=== PATIENT | male | born 1980 | race Caucasian/White ===

== ENCOUNTER 2017-09-06 23:48 | Emergency (ER) | payer OTHER ==
[~2017-09-06] VITALS: Ht 180.3 cm; Wt 74.8 kg
[2017-09-07 00:40] VITALS: BP 103/69
[2017-09-07 00:50] LABS: Urine Bacteria NONE SEEN /hpf (None Seen); Urine Blood Negative /uL (Negative); Urine Specific Gravity 1.022 (1.001-1.035); Urine WBC 1 /hpf (0 - 3)
[2017-09-07 01:23] LABS: Alcohol, Urine < 3.0 mg/dL (0-5)
[2017-09-07 01:24] LABS: Amphetamine Screen, Urine POSITIVE (NEGATIVE); Barbiturate Scree,Urine NEGATIVE (NEGATIVE); Benzodiazephine Screen, Urine NEGATIVE (NEGATIVE); Cannabinoid Screen, Urine NEGATIVE (NEGATIVE); Cocaine Screen, Urine NEGATIVE (NEGATIVE); Opiate Scree,Urine NEGATIVE (NEGATIVE); Phencyclidine Screen, Urine NEGATIVE (NEGATIVE)
== END 2017-09-07 06:21 | disposition left against medical advice (07) ==
LOC: ER 23:51
DX: R51 Headache (principal); Z53.21 Procedure and treatment not carried out due to patient leaving prior to being seen by health care provider
CPT/HCPCS: 70450; 80307; 81001

== ENCOUNTER 2018-05-22 12:17 | Emergency (ER) | payer OTHER ==
[~2018-05-22] VITALS: Ht 180.3 cm; Wt 64.4 kg
[2018-05-22 12:26] VITALS: BP 100/45
[2018-05-22] MEDS ORDERED: DEXAMETHASONE SOD PHOS 10MG/1ML VIAL INJ IM ONE (14:15)
[2018-05-22] MEDS ORDERED: KETOROLAC TROMETH 60MG/2ML VIAL IM ONE (14:15)
[2018-05-22] MEDS ORDERED: CYCLOBENZAPRINE HCL 10 MG TAB PO ONE (14:45)
== END 2018-05-22 15:56 | disposition home or self-care (01) ==
LOC: ER 12:17
DX: S33.5XXA Sprain of ligaments of lumbar spine, initial encounter (principal); Z88.0 Allergy status to penicillin; X58.XXXA Exposure to other specified factors, initial encounter; Y93.89 Activity, other specified; Y99.8 Other external cause status; Y92.89 Other specified places as the place of occurrence of the external cause
CPT/HCPCS: 72100; 96372; 99284; J1100; J1885

== ENCOUNTER 2019-10-24 01:15 | Emergency (ER) | payer OTHER ==
[~2019-10-24] VITALS: Ht 177.8 cm; Wt 64.9 kg
[2019-10-24 05:45] VITALS: BP 114/65
[2019-10-24] MEDS ORDERED: HYDROcodone-ACET 10/325MG TAB PO ONE (07:00)
== END 2019-10-24 08:27 | disposition home or self-care (01) ==
LOC: ER 01:22
DX: S30.21XA Contusion of penis, initial encounter (principal); F17.210 Nicotine dependence, cigarettes, uncomplicated; Z88.0 Allergy status to penicillin; W22.8XXA Striking against or struck by other objects, initial encounter; Y93.89 Activity, other specified; Y99.8 Other external cause status; Y92.89 Other specified places as the place of occurrence of the external cause
CPT/HCPCS: 76870

== ENCOUNTER 2019-10-31 20:31 | Emergency (ER) | payer OTHER ==
[~2019-10-31] VITALS: Ht 177.8 cm; Wt 70.3 kg
[2019-10-31 23:19] LABS: Urine Bacteria MOD /hpf (None Seen); Urine Blood 3+ /uL (Negative); Urine Specific Gravity 1.019 (1.001-1.035); Urine WBC 1457 /hpf (0 - 3); Urine WBC Clumps PRESENT /hpf (None Seen)
[2019-11-01 02:27] VITALS: BP 119/77
[2019-11-01] MEDS ORDERED: CLINDAMYCIN 600 MG/4 ML VL IM ONE (03:00)
[2019-11-01] MEDS ORDERED: KETOROLAC TROMETH 60MG/2ML VIAL IM ONE (03:00)
== END 2019-11-01 04:00 | disposition home or self-care (01) ==
LOC: ER 20:39
DX: N48.22 Cellulitis of corpus cavernosum and penis (principal); N39.0 Urinary tract infection, site not specified; Z88.0 Allergy status to penicillin; F17.210 Nicotine dependence, cigarettes, uncomplicated
CPT/HCPCS: 81001; 96372; 99284; J1885

== ENCOUNTER 2023-11-26 16:56 | Emergency (ER) | payer OTHER ==
[~2023-11-26] VITALS: Ht 180.3 cm; Wt 83.9 kg
[2023-11-26 17:36] VITALS: BP 101/77; RESP 16; O2SAT 100
[2023-11-26 17:49] VITALS: PULSE 62
[2023-11-26 19:34] LABS: Basophils # (auto) 0 10 ^3/uL (0-0.2); Basophils % (auto) 0.5 % (0.0-2.0); Eosinophils # (auto) 0.3 10 ^3/uL (0-0.8); Eosinophils % (auto) 4.1 % (0.0-7.0); Hematocrit 45.3 % (41.0-53.0); Hemoglobin 15.2 g/dL (13.5-17.5); Lymphocytes # (auto) 3.3 10 ^3/uL (0.4-5.4); Lymphocytes % (auto) 41.8 % (10.0-50.0); Mean Corpuscular Hemoglobin 29.7 pg (28.0-32.0); Mean Corpuscular Hgb Conc. 33.5 g/dL (32.0-36.0); Mean Corpuscular Volume 88.9 fL (80.0-100.0); Monocytes # (auto) 0.7 10 ^3/uL (0-1.3); Monocytes % (auto) 8.2 % (0.0-12.0); Neutrophils # (auto) 3.6 10 ^3/uL (1.6-8.6); Neutrophils % (auto) 45.4 % (37.0-80.0); Red Cell Distribution Width 13.2 % (11.8-14.3)
[2023-11-26 20:10] LABS: Alanine Aminotransferase 31 U/L (7-40); Albumin 4.3 g/dL (3.2-4.8); Alkaline Phosphatase 61 U/L (46-116); Anion Gap 1 (5-15); Aspartate Aminotransferase 25 U/L (13-40); BUN/Creatinine Ratio 10.4 (10.0-20.0); Bilirubin, Total 0.4 mg/dL (0.2-1.0); Blood Urea Nitrogen 12 mg/dL (9-23); Calcium 10.2 mg/dL (8.7-10.4); Carbon Dioxide 29 mmol/L (20-30); Chloride 108 mmol/L (98-107); Glucose 120 mg/dL (74-106); Potassium 4.4 mmol/L (3.5-5.1); Sodium 138 mmol/L (136-145); Total Protein 6.6 g/dL (5.7-8.2)
[2023-11-26 21:47] LABS: Urine Bacteria None Seen /hpf (None Seen)
[2023-11-26 22:02] LABS: Urine Blood Negative /uL (Negative); Urine Clarity Clear (Clear); Urine Color Light-Yellow (Yellow); Urine Protein, UAD Negative (Negative); Urine Specific Gravity 1.007 (1.001-1.035); Urine Urobilinogen Normal (Negative); Urine WBC <1 /hpf (0 - 3)
== END 2023-11-27 00:37 | disposition left against medical advice (07) ==
LOC: ER 16:56
DX: R55 Syncope and collapse (principal); R07.9 Chest pain, unspecified; F17.210 Nicotine dependence, cigarettes, uncomplicated
CPT/HCPCS: 36415; 80053; 81001; 82962; 83880; 84484; 85025; 93005

== ENCOUNTER 2024-01-14 11:34 | Emergency (ER) | payer OTHER ==
[~2024-01-14] VITALS: Ht 180.3 cm; Wt 80.0 kg
[2024-01-14] MEDS: SODIUM CHLORIDE 0.9% 1,000 ML IV ONE ×2 (13:22→14:06)
[2024-01-14 14:19] LABS: Basophils # (auto) 0 10 ^3/uL (0-0.2); Basophils % (auto) 0.6 % (0.0-2.0); Eosinophils # (auto) 0.2 10 ^3/uL (0-0.8); Eosinophils % (auto) 3.4 % (0.0-7.0); Hematocrit 50.3 % (41.0-53.0); Hemoglobin 17.2 g/dL (13.5-17.5); Lymphocytes # (auto) 2.1 10 ^3/uL (0.4-5.4); Lymphocytes % (auto) 37.1 % (10.0-50.0); Mean Corpuscular Hemoglobin 30.1 pg (28.0-32.0); Mean Corpuscular Hgb Conc. 34.2 g/dL (32.0-36.0); Monocytes # (auto) 0.5 10 ^3/uL (0-1.3); Monocytes % (auto) 9.3 % (0.0-12.0); Neutrophils # (auto) 2.8 10 ^3/uL (1.6-8.6); Neutrophils % (auto) 49.6 % (37.0-80.0); Nucleated Red Blood Cells % 0.2 %; Red Blood Cells 5.72 10^6/uL (4.5-5.90); Red Cell Distribution Width 13.1 % (11.8-14.3); White Blood Cell 5.6 10^3/uL (4.4-10.8)
[2024-01-14 14:33] LABS: Anion Gap 3 (5-15); Carbon Dioxide 30 mmol/L (20-30); Chloride 108 mmol/L (98-107); Potassium 4.6 mmol/L (3.5-5.1); Sodium 141 mmol/L (136-145)
[2024-01-14 14:34] LABS: Calcium 10.2 mg/dL (8.5-10.1)
[2024-01-14 14:38] LABS: Glucose 82 mg/dL (74-106)
[2024-01-14 14:39] LABS: BUN/Creatinine Ratio 7.1 (10.0-20.0); Blood Urea Nitrogen 7 mg/dL (9-23)
[2024-01-14 14:49] LABS: Urine Bacteria None Seen /hpf (None Seen)
[2024-01-14 15:06] LABS: Urine Blood Negative /uL (Negative); Urine Clarity Clear (Clear); Urine Color Colorless (Yellow); Urine Protein, UAD Negative (Negative); Urine Specific Gravity 1.005 (1.001-1.035); Urine Urobilinogen Normal (Negative); Urine WBC <1 /hpf (0 - 3)
[2024-01-14 17:06] VITALS: BP 120/57; PULSE 79; RESP 16; TEMP 97.3; O2SAT 98
== END 2024-01-14 17:55 | disposition left against medical advice (07) ==
LOC: EDBD 11:34 → ER 11:40
DX: R55 Syncope and collapse (principal); R42 Dizziness and giddiness; F17.210 Nicotine dependence, cigarettes, uncomplicated
CPT/HCPCS: 36415; 70450; 80048; 81001; 85025; 96360; 96361; 99284; J7030